=== PATIENT | male | born 1985 | race Caucasian/White ===

== ENCOUNTER 2017-10-17 20:51 | Emergency (ER) | payer BC ==
[~2017-10-17] VITALS: Ht 177.8 cm; Wt 86.0 kg
[2017-10-17 21:06] VITALS: Ht 177.8 cm; Wt 86.0 kg
[2017-10-17] MEDS ORDERED: KETOROLAC TROMETHAMINE 30 MG/ML VIAL IV STA (21:57)
[2017-10-17] MEDS ORDERED: ACETAMINOPHEN IV 100 ML IV ONE (22:00)
[2017-10-17] MEDS ORDERED: SODIUM CHLORIDE 0.9% 1000ML 1,000 ML, SODIUM CHLORIDE 0.9% 1000ML 1,000 ML IV ONE (22:00)
[2017-10-17 22:16] LABS: HEMATOCRIT 39.2 % (42-52); MEAN CELL VOLUME 86.5 fL (80-100); MEAN CORPUSCULAR HEMOGLOBIN 30.9 pg (25-34); MEAN CORPUSCULAR HGB CONC 35.7 g/dl (32-36); MEAN PLATELET VOLUME 9.4 fL (7.4-10.4); PLATELET COUNT 148 K/uL (130-400); RED CELL DISTRIBUTION WIDTH CV 12.4 % (11.5-14.5); RED CELL DISTRIBUTION WIDTH SD 39.7 fL (36.4-46.3); WHITE BLOOD COUNT 6.19 K/uL (4.8-10.8)
[2017-10-17 22:36] LABS: ALBUMIN 3.3 gm/dl (3.4-5.0); CALCIUM 8.2 mg/dl (8.5-10.1); CREATININE 0.93 mg/dl (0.60-1.40); POTASSIUM 3.5 mmol/L (3.5-5.1)
--- NOTE | 2017-10-17 22:45 | DIAGNOSTIC IMAGING REPORT ---
CHEST 2 VIEWS ROUTINE CLINICAL HISTORY: fever. cough. flu like COMPARISON STUDY: No previous studies for comparison. FINDINGS: Lung volumes are normal. There is no pneumothorax or pleural effusion. There is no consolidation or evidence for pulmonary edema. Cardiomediastinal silhouette is unremarkable. IMPRESSION: No acute cardiopulmonary findings. Electronically signed by: Yogesh Celestin M.D. 10/17/2017 10:44 PM Dictated Date/Time: 10/17/2017 10:43 PM
[2017-10-17 22:49] VITALS: TEMP 38.2
[2017-10-17 22:52] LABS: INFLUENZA B ANTIGEN Neg for Influ B (NEG)
[2017-10-17] MEDS ORDERED: METHYLPREDNISOLONE 125 MG VIAL IV STA (23:32)
[2017-10-17] MEDS ORDERED: AMPICILLIN/SULBACTAM SOD INJ 3,000 MG in SODIUM CHLORIDE 0.9% 100ML 100 ML IV STA (23:32)
[2017-10-17 23:33] LABS: BASO % 0.2 %; BASO ABS # 0.01 K/uL (0-0.2); EOS % 1.6 %; IG# 0.02 K/uL (0.00-0.02); LYMPH % 9.2 %; LYMPH ABS # 0.57 K/uL (1.2-3.4); MONO % 6.3 %; MONO ABS # 0.39 K/uL (0.11-0.59); NEUT % 82.4 %
[2017-10-17] MEDS ORDERED: AMOX875T PO (23:59)
[2017-10-17] MEDS ORDERED: PRED50TA PO (23:59)
[2017-10-18 01:00] VITALS: BP 132/72; PULSE 80; O2SAT 98
--- NOTE | 2017-10-18 01:21 | EMERGENCY ROOM VISIT NOTE ---
History First contact with patient: 21:47 Chief Complaint: FLU LIKE SX Stated Complaint: FLU SYMPTOMS,HEAD CONGESTION,SORE THROAT History of Present Illness The patient is a 31 year old male who presents to the Emergency Room with complaints of fever and flulike symptoms for the past 3 or 4 days. The patient states that his fever has been as high as 103 at home. He has intermittently been taking Advil and Tylenol, but none for the past 10 hours. The patient does not have known exposure to disease. He considers himself usually healthy. He does have some right-sided sinus congestion and sore throat. He has a nonproductive cough. He rates his overall discomfort an 8/10. Review of Systems More than 10 systems were reviewed and otherwise negative with the exception of history of present illness. Past Medical/Surgical History No pertinent chronic medical disease Family History No pertinent family history Social History Smoking Status: Never Smoker Alcohol Use: occasionally Drug Use: none Marital Status: single Housing Status: lives with family Occupation Status: employed Current/Historical Medications Scheduled Amoxicillin & Pot Clavulanate (Augmentin 875-125 mg), 1 TAB PO BID Prednisone (Prednisone), 50 MG PO DAILY Physical Exam Vital Signs Date Time Temp Pulse Resp B/P (MAP) Pulse Ox O2 Delivery O2 Flow Rate FiO2 10/17/17 22:49 38.2 72 16 137/73 98 Room Air 10/17/17 21:06 38.9 108 20 143/77 94 Room Air Physical Exam VITALS: Vitals are noted on the nurse's note and reviewed by myself. Vital signs with noted fever GENERAL: Ill-appearing male who is laying flat in his ER bed. He is cooperative with the examination and answers questions appropriately. HEAD: Positive right-sided frontal and maxillary tenderness to percussion. There is very slight edema of the right medial eyelid compared to the left. EARS: External ear normal. External auditory canals clear, tympanic membranes pearly shelton without erythema or effusion bilaterally. EYES: Pupils equal round and reactive to light and accommodation. Conjunctivae without injection, sclerae without icterus. Extraocular movements intact. NOSE: Patent, turbinates without inflammation or discharge. MOUTH: Mucous membranes moist. Tonsils are not enlarged. Pharynx without erythema, blood, or exudate. Uvula midline. Airway patent. NECK: Supple without nuchal rigidity. No lymphadenopathy. No thyromegaly. Cervical spine is nontender. HEART: Regular rate and rhythm without murmurs gallops or rubs. LUNGS: Clear to auscultation bilaterally without wheezes, rales or rhonchi. No retractions or accessory muscle use. Medical Decision & Procedures ER Provider Diagnostic Interpretation: CHEST 2 VIEWS ROUTINE CLINICAL HISTORY: fever. cough. flu like COMPARISON STUDY: No previous studies for comparison. FINDINGS: Lung volumes are normal. There is no pneumothorax or pleural effusion. There is no consolidation or evidence for pulmonary edema. Cardiomediastinal silhouette is unremarkable. IMPRESSION: No acute cardiopulmonary findings. Laboratory Results 10/17/17 22:08 Red Blood Count 4.53, Mean Corpuscular Volume 86.5, Mean Corpuscular Hemoglobin 30.9, Mean Corpuscular Hemoglobin Concent 35.7, Mean Platelet Volume 9.4, Neutrophils (%) (Auto) 82.4, Lymphocytes (%) (Auto) 9.2, Monocytes (%) (Auto) 6.3, Eosinophils (%) (Auto) 1.6, Basophils (%) (Auto) 0.2, Neutrophils # (Auto) 5.10, Lymphocytes # (Auto) 0.57, Monocytes # (Auto) 0.39, Eosinophils # (Auto) 0.10, Basophils # (Auto) 0.01 10/17/17 22:08 Test 10/17/17 22:08 10/17/17 22:16 White Blood Count 6.19 K/uL (4.8-10.8) Red Blood Count 4.53 M/uL (4.7-6.1) Hemoglobin 14.0 g/dL (14.0-18.0) Hematocrit 39.2 % (42-52) Mean Corpuscular Volume 86.5 fL (80-100) Mean Corpuscular Hemoglobin 30.9 pg (25-34) Mean Corpuscular Hemoglobin Concent 35.7 g/dl (32-36) Platelet Count 148 K/uL (130-400) Mean Platelet Volume 9.4 fL (7.4-10.4) Neutrophils (%) (Auto) 82.4 % Lymphocytes (%) (Auto) 9.2 % Monocytes (%) (Auto) 6.3 % Eosinophils (%) (Auto) 1.6 % Basophils (%) (Auto) 0.2 % Neutrophils # (Auto) 5.10 K/uL (1.4-6.5) Lymphocytes # (Auto) 0.57 K/uL (1.2-3.4) Monocytes # (Auto) 0.39 K/uL (0.11-0.59) Eosinophils # (Auto) 0.10 K/uL (0-0.5) Basophils # (Auto) 0.01 K/uL (0-0.2) RDW Standard Deviation 39.7 fL (36.4-46.3) RDW Coefficient of Variation 12.4 % (11.5-14.5) Immature Granulocyte % (Auto) 0.3 % Immature Granulocyte # (Auto) 0.02 K/uL (0.00-0.02) Red Blood Cell Morphology Unremarkable Anion Gap 6.0 mmol/L (3-11) Est Creatinine Clear Calc Drug Dose 116.7 ml/min Estimated GFR () 124.6 Estimated GFR (Non- 107.5 BUN/Creatinine Ratio 6.9 (10-20) Calcium Level 8.2 mg/dl (8.5-10.1) Total Bilirubin 0.5 mg/dl (0.2-1) Aspartate Amino Transf (AST/SGOT) 53 U/L (15-37) Alanine Aminotransferase (ALT/SGPT) 111 U/L (12-78) Alkaline Phosphatase 86 U/L (45-117) Total Protein 7.0 gm/dl (6.4-8.2) Albumin 3.3 gm/dl (3.4-5.0) Globulin 3.7 gm/dl (2.5-4.0) Albumin/Globulin Ratio 0.9 (0.9-2) Influenza Type A Antigen Neg for Influ A (NEG) Influenza Type B Antigen Neg for Influ B (NEG) Medications Administered Medications (Trade) Dose Ordered Sig/Mariana Route Start Time Stop Time Status Last Admin Dose Admin Ketorolac Tromethamine (Toradol Inj) 30 mg NOW STAT IV 10/17/17 21:57 10/17/17 21:59 DC 10/17/17 21:57 30 MG Acetaminophen 100 ml @ 400 mls/hr NOW ONCE IV 10/17/17 22:00 10/17/17 22:14 DC 10/17/17 22:15 400 MLS/HR Sodium Chloride/ Sodium Chloride 2,000 ml @ 999 mls/hr Q2H1M ONCE IV 10/17/17 22:00 10/18/17 00:00 DC 10/17/17 22:15 999 MLS/HR Methylprednisolone Sodium Succinate (Solu-Medrol IV) 125 mg NOW STAT IV 10/17/17 23:32 10/17/17 23:34 DC 10/17/17 23:55 125 MG Ampicillin Sodium/ Sulbactam Sodium 3000 mg/Sodium Chloride 108 ml @ 200 mls/hr NOW STAT IV 10/17/17 23:32 10/18/17 00:04 DC 10/17/17 23:56 200 MLS/HR ED Course Physical exam and history were performed. Nursing notes, EMR, and Medication List were personally reviewed. Patient appears to have fever and chills for the past several days. The patient does appear ill on examination. He has right-sided facial tenderness as well as some very mild edema of the right upper eyelid. IV access was established and labs are obtained. Chest x-ray was performed. The patient was hydrated and medicated as above. The patient's blood work is as above and was reviewed. He does not have a significantly elevated white blood cell count, gross anemia, bandemia, or significant electrolyte imbalance. His transaminases are very slightly elevated of unknown etiology at this time. Influenza swabs were negative. His remaining blood work was fairly unremarkable. Chest x-ray does not show acute findings. On reevaluation the patient did feel improved after fluids and antipyretics. He continues to have discomfort primarily in the right side of his face, and clinically I do suspect an acute sinus infection is the likely cause of his symptoms. The patient was given Unasyn and Solu-Medrol here in the department. He will be continued on Augmentin and prednisone. The patient is to follow- up with his primary care physician in the next 2-3 days for recheck. I did give him a note for several days off work. He is to use [id number] analgesics/antipyretics. He was otherwise invited back to the ER with any new, worsening, or concerning symptoms. The chart was completed utilizing [employer] Voice Recognition Software. Grammatical errors, random word insertions, pronoun errors, and incomplete sentences are an occasional consequence of this system due to software limitations, ambient noise, and hardware issues. Any formal questions or concerns about the content, text, or information contained within the body of this dictation should be directly addressed to the provider for clarification. . Medical Decision Differential diagnosis: Etiologies such as viral syndrome, otitis, pharyngitis, pneumonia, influenza, meningitis, urinary tract infection, sepsis, bacteremia, as well as others were entertained. Impression Primary Impression: Acute sinusitis Additional Impression: Fever Departure Information Dispostion Home / Self-Care Condition GOOD Prescriptions Prednisone (Prednisone) 50 Mg Tab 50 MG PO DAILY for 4 Days, #4 TAB Prov: Holden Stroud PA-C 10/17/17 Amoxicillin & Pot Clavulanate (Augmentin 875-125 mg) 1 Tab Tab 1 TAB PO BID for 10 Days, #20 TAB Prov: Holden Stroud PA-C 10/17/17 Forms HOME CARE DOCUMENTATION FORM, Work Instructions, Additional Instructions: Patient was seen and evaluated today in the emergency department fo medical care. Return to work on 10/22/2017. Please excuse. IMPORTANT VISIT INFORMATION Patient Instructions [facility] Additional Instructions You were seen and evaluated today on an emergency basis only. This is not a substitute for, or an effort to provide, complete comprehensive medical care. It is not possible to recognize and treat all injuries or illnesses in a single emergency department visit. For this reason it is recommended that you followup with your primary care physician in 2-3 days for recheck of your condition. For baseline pain relief you may alternate ibuprofen and acetaminophen every 4 hours for pain control. Take 600 mg ibuprofen (Advil) and then 4 hours later take 1000 mg acetaminophen (Tylenol). Do not take more than 3000 mg acetaminophen in a single day. Amoxicillin Clavulanate (Augmentin) 875mg: Take one pill twice daily for 10 days for your infection. All antibiotics can cause diarrhea. If this occurs and you feel worse or it does not resolve in 1-2 days follow up with your doctor or return to the Emergency Department as this could be signs of serious underlying problems. Any medication can cause an allergic reaction, stop the pills immediately and return to the ER for rash, hives, breathing difficulties, or swelling. Take prednisone as prescribed You are welcome to return to the emergency department anytime with new, worsening, or concerning symptoms. Work Instructions Additional Work Instructions: Patient was seen and evaluated today in the emergency department for medical care. Return to work on 10/22/2017. Please excuse. Problem Qualifiers
== END 2017-10-18 01:01 | disposition home or self-care (01) ==
LOC: C.EDB 20:52 → C.EDA 10-18 01:01
DX: J01.90 Acute sinusitis, unspecified (principal); R50.9 Fever, unspecified